=== PATIENT | male | born 1950 | race Caucasian/White ===

== ENCOUNTER 2018-05-03 11:06 | Inpatient (IN) | payer MEDICARE ==
[~2018-05-03] VITALS: Ht 172.7 cm; Wt 81.8 kg
[~2018-05-03 11:06] MED LIST: ATOR40TA78 PO; CEFA2PIG7 IV; ERGO500017 PO; FOLI-17 PO; LEVO25TA2 PO; MAGN400T7 PO; METO10TA82 PO; METO25TA35 PO; ONDA4VIA4 IVPush; PANT40GR PO; POLY17PO5 PO; THIA100T67 PO
[2018-05-03] MEDS ORDERED: SODIUM CHLORIDE 0.9% 1,000ML IVBOLUS ONE (11:30)
[2018-05-03] MEDS ORDERED: GUAI600T80 PO (11:57)
[2018-05-03] MEDS ORDERED: METH750T87 PO (11:57)
[2018-05-03] MEDS ORDERED: LEVO50TA PO (11:57)
[2018-05-03] MEDS ORDERED: MELA1TAB15 PO (11:57)
[2018-05-03] MEDS ORDERED: POTA20TA89 PO (11:57)
[2018-05-03] MEDS ORDERED: MAGN400T7 PO (11:57)
[2018-05-03] MEDS ORDERED: VITA1TAB3 PO (11:57)
[2018-05-03] MEDS ORDERED: ONDA4TAB10 PO (11:57)
[2018-05-03] MEDS ORDERED: LOSA100T2 PO (11:57)
[2018-05-03] MEDS ORDERED: THIA100T10 PO (11:57)
[2018-05-03] MEDS ORDERED: FURO40TA6 PO (11:57)
[2018-05-03] MEDS ORDERED: ATOR40TA PO (11:57)
[2018-05-03] MEDS ORDERED: CEFA2PLA9 IV (11:57)
[2018-05-03] MEDS ORDERED: SENN-31 PO (11:57)
[2018-05-03 12:07] LABS: BASOPHILS # (AUTO) 0.03 x10^3/uL (0-0.1); BASOPHILS % (AUTO) 0 % (0-1); EOSINOPHILS # (AUTO) 0.24 x10^3/uL (0-0.4); EOSINOPHILS % (AUTO) 3 % (1-7); LYMPHOCYTES # (AUTO) 0.81 x10^3/uL (1-3.4); LYMPHOCYTES % (AUTO) 9 % (22-44); MD NO; MEAN CORPUSCULAR HEMOGLOBIN 29.3 pg (27.5-34.5); MEAN CORPUSCULAR HGB CONC 33.5 g/dL (33.2-36.2); MEAN CORPUSCULAR VOLUME 87.3 fL (81-97); MEAN PLATELET VOLUME 6.2 fL (7.4-10.4); MONOCYTES # (AUTO) 1.19 x10^3/uL (0.2-0.8); MONOCYTES % (AUTO) 14 % (2-9); NEUTROPHILS # (AUTO) 6.39 x10^3/uL (1.8-6.8); NEUTROPHILS % (AUTO) 74 % (42-75); PLATELET COUNT 404 x10^3/uL (130-400); RED BLOOD COUNT 3.63 x10^6/uL (4.38-5.82); RED CELL DISTRIBUTION WIDTH 14.8 % (9.4-14.8)
[2018-05-03 12:19] LABS: ALANINE AMINOTRANSFERASE 30 U/L (12-78); ALBUMIN 3.2 g/dL (3.4-5.0); ANION GAP 7 mmol/L (5-15); CALCIUM 8.5 mg/dL (8.5-10.1); CHLORIDE 106 mmol/L (98-107); CREATININE 1.05 mg/dL (0.7-1.3)
[2018-05-03 12:23] LABS: ALKALINE PHOSPHATASE 193 U/L (45-117); BILIRUBIN,TOTAL 0.7 mg/dL (0.2-1.0); TOTAL PROTEIN 7.6 g/dL (6.4-8.2); TROPONIN I < 0.015 ng/mL (0.000-0.045)
[2018-05-03] MEDS ORDERED: OMNIPAQUE 350 MG/ML, 100ML BOTTLE ONE (12:47)
[2018-05-03] MEDS ORDERED: HEPARIN 5,000 UNITS/ML, 1ML IV ONE (13:30)
[2018-05-03] MEDS ORDERED: HEPARIN 25,000 UNITS/500ML PMX 500 ML ONE (13:34)
[2018-05-03] MEDS ORDERED: HEPARIN 5,000 UNITS/ML, 1ML ONE (13:34)
[2018-05-03] MEDS ORDERED: hydrALAzine 20 MG/ML, 1ML IVPush PRN (14:30)
[2018-05-03] MEDS ORDERED: DOCUSATE 100 MG CAPSULE PO PRN (14:30)
[2018-05-03] MEDS ORDERED: ONDANSETRON 2MG/ML, 2ML IVPush PRN (14:30)
[2018-05-03] MEDS ORDERED: LABETALOL 5MG/ML, 20ML IVPush PRN (14:30)
[2018-05-03] MEDS ORDERED: POLYETHYLENE GLYCOL 17 GM PACKET PO PRN (14:30)
[2018-05-03] MEDS ORDERED: ONDANSETRON ODT 4 MG PO PRN ×2 (14:30→19:30)
[2018-05-03] MEDS ORDERED: morphine SULFATE 10 MG/ML, 1ML IVPush PRN (14:30)
[2018-05-03] MEDS ORDERED: BISACODYL 10 MG SUPP PR PRN (14:30)
[2018-05-03] MEDS: HEPARIN 25,000 UNITS/500ML PMX 500 ML IV PRN ×2 (14:40→14:42)
[2018-05-03 15:20] VITALS: BP 135/87
[2018-05-03] MEDS: SUCRALFATE 1 GM TABLET PO SCH ×2 (17:37→22:52)
[2018-05-03] MEDS: PANTOPRAZOLE 80 MG in SODIUM CHLORIDE 0.9% 100 ML IV SCH (17:37)
[2018-05-03] MEDS: HYDROcodone/APAP 5/325 TABLET PO PRN (18:50)
[2018-05-03] MEDS ORDERED: CEFAZOLIN SODIUM IV SCH (19:30)
[2018-05-03] MEDS ORDERED: NACL 0.9% IV SCH (19:30)
[2018-05-03] MEDS ORDERED: [UNRECOGNIZED DRUG - OTHER] IV SCH (19:30)
[2018-05-03] MEDS ORDERED: MULTIVITS,STRESS FORMULA 1 TABLET PO SCH (20:00)
[2018-05-03 20:14] VITALS: BP 109/66
[2018-05-03] MEDS: MELATONIN 5 MG TABLET PO SCH (21:03)
[2018-05-03] MEDS: ATORVASTATIN 40 MG TABLET PO SCH (21:03)
[2018-05-03] MEDS: MAGNESIUM OXIDE 400 MG TABLET PO SCH (21:03)
[2018-05-03] MEDS: GUAIFENESIN ER 600 MG TABLET PO SCH (21:03)
[2018-05-03] MEDS: CEFAZOLIN PMX 2GM/50ML 50 ML IVPB SCH (21:03)
[2018-05-03] MEDS: HEPARIN 5,000 UNITS/ML, 1ML IV PRN (22:52)
[2018-05-04] VITALS (7 sets, daily range): BP systolic 90–110; BP diastolic 54–74
[2018-05-04] MEDS: PANTOPRAZOLE 80 MG in SODIUM CHLORIDE 0.9% 100 ML IV SCH (01:56)
[2018-05-04] MEDS: HYDROcodone/APAP 5/325 TABLET PO PRN ×2 (02:31→13:11)
[2018-05-04 05:20] LABS: ANION GAP 5 mmol/L (5-15); CALCIUM 8.7 mg/dL (8.5-10.1); CHLORIDE 106 mmol/L (98-107); CREATININE 1.04 mg/dL (0.7-1.3)
[2018-05-04 05:21] LABS: BASOPHILS # (AUTO) 0.03 x10^3/uL (0-0.1); BASOPHILS % (AUTO) 1 % (0-1); EOSINOPHILS % (AUTO) 3 % (1-7); LYMPHOCYTES # (AUTO) 1.04 x10^3/uL (1-3.4); LYMPHOCYTES % (AUTO) 15 % (22-44); MD NO; MEAN CORPUSCULAR HEMOGLOBIN 29.1 pg (27.5-34.5); MEAN CORPUSCULAR HGB CONC 33.4 g/dL (33.2-36.2); MEAN CORPUSCULAR VOLUME 87.2 fL (81-97); MEAN PLATELET VOLUME 6.4 fL (7.4-10.4); MONOCYTES % (AUTO) 14 % (2-9); NEUTROPHILS # (AUTO) 4.84 x10^3/uL (1.8-6.8); NEUTROPHILS % (AUTO) 68 % (42-75); PLATELET COUNT 359 x10^3/uL (130-400); RED BLOOD COUNT 3.13 x10^6/uL (4.38-5.82); RED CELL DISTRIBUTION WIDTH 15.1 % (9.4-14.8)
[2018-05-04] MEDS: SUCRALFATE 1 GM TABLET PO SCH ×4 (05:46→22:11)
[2018-05-04] MEDS: LEVOTHYROXINE 50 MCG TABLET PO SCH (05:46)
[2018-05-04] MEDS: HEPARIN 5,000 UNITS/ML, 1ML IV PRN ×3 (05:46→22:11)
[2018-05-04] MEDS: METOPROLOL TARTRATE 25 MG TABLET PO SCH ×2 (05:47→18:04)
[2018-05-04] MEDS: CEFAZOLIN PMX 2GM/50ML 50 ML IVPB SCH ×3 (05:47→20:23)
[2018-05-04] MEDS: FUROSEMIDE 40 MG TABLET PO SCH (08:35)
[2018-05-04] MEDS: FOLIC ACID 1 MG TABLET PO SCH (08:35)
[2018-05-04] MEDS: THIAMINE 100MG TABLET PO SCH (08:35)
[2018-05-04] MEDS: POTASSIUM CHLORIDE 20 MEQ TAB.ER.PRT PO SCH (08:35)
[2018-05-04] MEDS: GUAIFENESIN ER 600 MG TABLET PO SCH ×2 (08:35→20:23)
[2018-05-04] MEDS: MAGNESIUM OXIDE 400 MG TABLET PO SCH ×2 (08:35→20:23)
[2018-05-04] MEDS: LOSARTAN 50MG TABLET PO SCH (08:36)
[2018-05-04] MEDS: METHOCARBAMOL 750 MG TABLET PO PRN ×2 (08:57→18:04)
[2018-05-04] MEDS ORDERED: SENNA/DOCUSATE TABLET PO SCH (09:00)
[2018-05-04] MEDS: HEPARIN 25,000 UNITS/500ML PMX 500 ML IV PRN (13:44)
[2018-05-04] MEDS: OMEPRAZOLE 20 MG CAPSULE.DR PO SCH (16:09)
[2018-05-04] MEDS: ATORVASTATIN 40 MG TABLET PO SCH (20:23)
[2018-05-04] MEDS: MELATONIN 5 MG TABLET PO SCH (20:29)
[2018-05-05 01:32] VITALS: BP 98/63
[2018-05-05] MEDS: ACETAMINOPHEN 325 MG TABLET PO PRN ×3 (01:38→16:04)
[2018-05-05 04:59] VITALS: BP 98/66
[2018-05-05] MEDS: CEFAZOLIN PMX 2GM/50ML 50 ML IVPB SCH ×3 (05:01→21:14)
[2018-05-05] MEDS: SUCRALFATE 1 GM TABLET PO SCH ×4 (05:02→21:14)
[2018-05-05] MEDS: LEVOTHYROXINE 50 MCG TABLET PO SCH (05:02)
[2018-05-05 05:37] LABS: BASOPHILS # (AUTO) 0.05 x10^3/uL (0-0.1); BASOPHILS % (AUTO) 1 % (0-1); EOSINOPHILS % (AUTO) 4 % (1-7); LYMPHOCYTES # (AUTO) 0.95 x10^3/uL (1-3.4); LYMPHOCYTES % (AUTO) 17 % (22-44); MD NO; MEAN CORPUSCULAR HEMOGLOBIN 28.6 pg (27.5-34.5); MEAN CORPUSCULAR HGB CONC 32.9 g/dL (33.2-36.2); MEAN CORPUSCULAR VOLUME 86.7 fL (81-97); MEAN PLATELET VOLUME 6.5 fL (7.4-10.4); MONOCYTES # (AUTO) 0.73 x10^3/uL (0.2-0.8); MONOCYTES % (AUTO) 13 % (2-9); NEUTROPHILS # (AUTO) 3.78 x10^3/uL (1.8-6.8); NEUTROPHILS % (AUTO) 66 % (42-75); PLATELET COUNT 372 x10^3/uL (130-400); RED BLOOD COUNT 3.11 x10^6/uL (4.38-5.82); RED CELL DISTRIBUTION WIDTH 14.4 % (9.4-14.8)
[2018-05-05] MEDS: HEPARIN 25,000 UNITS/500ML PMX 500 ML IV PRN ×2 (05:59→17:44)
[2018-05-05] MEDS: HEPARIN 5,000 UNITS/ML, 1ML IV PRN (06:01)
[2018-05-05 06:37] VITALS: BP 112/73
[2018-05-05] MEDS: OMEPRAZOLE 20 MG CAPSULE.DR PO SCH ×2 (08:17→15:56)
[2018-05-05] MEDS: FOLIC ACID 1 MG TABLET PO SCH (08:18)
[2018-05-05] MEDS: GUAIFENESIN ER 600 MG TABLET PO SCH ×2 (08:18→20:29)
[2018-05-05] MEDS: POTASSIUM CHLORIDE 20 MEQ TAB.ER.PRT PO SCH (08:18)
[2018-05-05] MEDS: FUROSEMIDE 40 MG TABLET PO SCH (08:19)
[2018-05-05] MEDS: MAGNESIUM OXIDE 400 MG TABLET PO SCH ×2 (08:19→20:29)
[2018-05-05] MEDS: THIAMINE 100MG TABLET PO SCH (08:19)
[2018-05-05] MEDS ORDERED: METOPROLOL TARTRATE 50 MG TABLET ONE (08:34)
[2018-05-05] MEDS: LOSARTAN 50MG TABLET PO SCH (10:06)
[2018-05-05] MEDS: METOPROLOL TARTRATE 25 MG TABLET PO SCH ×2 (10:07→17:40)
[2018-05-05] MEDS ORDERED: METHOCARBAMOL 500 MG TABLET ONE (11:08)
[2018-05-05] MEDS: METHOCARBAMOL 750 MG TABLET PO PRN (11:12)
[2018-05-05 12:59] VITALS: BP 106/69
[2018-05-05 18:59] VITALS: BP 111/69
[2018-05-05] MEDS: ATORVASTATIN 40 MG TABLET PO SCH (20:28)
[2018-05-05] MEDS: MELATONIN 5 MG TABLET PO SCH (20:29)
[2018-05-06 05:18] VITALS: BP 117/74
[2018-05-06] MEDS: SUCRALFATE 1 GM TABLET PO SCH ×4 (05:20→21:00)
[2018-05-06] MEDS: CEFAZOLIN PMX 2GM/50ML 50 ML IVPB SCH ×2 (05:20→13:42)
[2018-05-06] MEDS: METOPROLOL TARTRATE 25 MG TABLET PO SCH ×2 (05:20→17:47)
[2018-05-06] MEDS: LEVOTHYROXINE 50 MCG TABLET PO SCH (05:20)
[2018-05-06 07:33] VITALS: BP 118/76
[2018-05-06] MEDS: ACETAMINOPHEN 325 MG TABLET PO PRN ×2 (07:39→16:12)
[2018-05-06] MEDS: METHOCARBAMOL 750 MG TABLET PO PRN ×2 (07:39→16:12)
[2018-05-06] MEDS: OMEPRAZOLE 20 MG CAPSULE.DR PO SCH ×2 (07:39→15:52)
[2018-05-06] MEDS: LOSARTAN 50MG TABLET PO SCH (07:40)
[2018-05-06] MEDS: POTASSIUM CHLORIDE 20 MEQ TAB.ER.PRT PO SCH (07:40)
[2018-05-06] MEDS: FOLIC ACID 1 MG TABLET PO SCH (07:40)
[2018-05-06] MEDS: THIAMINE 100MG TABLET PO SCH (07:41)
[2018-05-06] MEDS: FUROSEMIDE 40 MG TABLET PO SCH (07:41)
[2018-05-06] MEDS: MAGNESIUM OXIDE 400 MG TABLET PO SCH ×2 (07:41→20:59)
[2018-05-06] MEDS: GUAIFENESIN ER 600 MG TABLET PO SCH ×2 (07:42→21:00)
[2018-05-06] MEDS: HEPARIN 25,000 UNITS/500ML PMX 500 ML IV PRN (10:40)
[2018-05-06 14:04] VITALS: BP 110/69
[2018-05-06 19:33] VITALS: BP 110/71
[2018-05-06] MEDS: ATORVASTATIN 40 MG TABLET PO SCH (20:59)
[2018-05-06] MEDS: RIVAROXABAN 15 MG TABLET PO SCH (21:22)
[2018-05-06] MEDS: MELATONIN 5 MG TABLET PO SCH (21:22)
[2018-05-06] MEDS: CEFAZOLIN 2,000 MG in SODIUM CHLORIDE 0.9% 50 ML IVPB SCH (22:21)
[2018-05-07 00:38] VITALS: BP 130/82
[2018-05-07] MEDS ORDERED: SULFAMETH./TRIMETHOPRIM DS 800MG/160MG TABLET PO SCH (03:00)
[2018-05-07] MEDS: SUCRALFATE 1 GM TABLET PO SCH ×3 (04:16→16:54)
[2018-05-07] MEDS: LEVOTHYROXINE 50 MCG TABLET PO SCH (05:47)
[2018-05-07] MEDS: METOPROLOL TARTRATE 25 MG TABLET PO SCH ×2 (05:48→16:54)
[2018-05-07] MEDS: CEFAZOLIN 2,000 MG in SODIUM CHLORIDE 0.9% 50 ML IVPB SCH ×2 (06:00→14:48)
[2018-05-07 07:41] VITALS: BP 116/75
[2018-05-07 08:03] VITALS: BP 134/81
[2018-05-07] MEDS: FOLIC ACID 1 MG TABLET PO SCH (09:49)
[2018-05-07] MEDS: THIAMINE 100MG TABLET PO SCH (09:49)
[2018-05-07] MEDS: LOSARTAN 50MG TABLET PO SCH (09:50)
[2018-05-07] MEDS: RIVAROXABAN 15 MG TABLET PO SCH ×2 (09:50→16:55)
[2018-05-07] MEDS: POTASSIUM CHLORIDE 20 MEQ TAB.ER.PRT PO SCH (09:50)
[2018-05-07] MEDS: GUAIFENESIN ER 600 MG TABLET PO SCH (09:51)
[2018-05-07] MEDS: FUROSEMIDE 40 MG TABLET PO SCH (09:51)
[2018-05-07] MEDS: MAGNESIUM OXIDE 400 MG TABLET PO SCH (09:51)
[2018-05-07] MEDS: OMEPRAZOLE 20 MG CAPSULE.DR PO SCH ×2 (09:56→16:55)
[2018-05-07] MEDS: ACETAMINOPHEN 325 MG TABLET PO PRN (10:36)
[2018-05-07] MEDS ORDERED: LOSA100T2 PO (12:41)
[2018-05-07] MEDS ORDERED: POTA20TA89 PO (12:41)
[2018-05-07] MEDS ORDERED: FURO40TA6 PO (12:41)
[2018-05-07] MEDS ORDERED: ATOR40TA PO (12:41)
[2018-05-07] MEDS ORDERED: RIVA20TA PO (12:41)
[2018-05-07] MEDS ORDERED: SUCR1TAB33 PO (12:41)
[2018-05-07] MEDS ORDERED: METO25TA35 PO (12:41)
[2018-05-07] MEDS ORDERED: ONDA4TAB10 PO (12:41)
[2018-05-07] MEDS ORDERED: THIA100T10 PO (12:41)
[2018-05-07] MEDS ORDERED: BISA10SU65 PR (12:41)
[2018-05-07] MEDS ORDERED: GUAI600T80 PO (12:41)
[2018-05-07] MEDS ORDERED: MELA5TAB19 PO (12:41)
[2018-05-07] MEDS ORDERED: FOLI-17 PO (12:41)
[2018-05-07] MEDS ORDERED: METH750T87 PO (12:41)
[2018-05-07] MEDS ORDERED: LEVO50TA PO (12:41)
[2018-05-07] MEDS ORDERED: PANT40GR PO (12:41)
[2018-05-07] MEDS ORDERED: SENN-31 PO (12:41)
[2018-05-07] MEDS ORDERED: RIVA15TA PO (12:41)
[2018-05-07] MEDS ORDERED: MAGN400T7 PO (12:41)
[2018-05-07 16:45] VITALS: BP 123/80
[2018-05-28] MEDS ORDERED: RIVAROXABAN 20 MG TABLET PO SCH (08:00)
== END 2018-05-07 18:21 | disposition home or self-care (01) | DRG 288 ==
LOC: ED 11:25 → EDIP 13:53 → 5SO 15:04
PROVIDERS: ADMIT Hospitalist; ATTEND Hospitalist
DX: I33.0 Acute and subacute infective endocarditis (principal); I26.99 Other pulmonary embolism without acute cor pulmonale; J96.01 Acute respiratory failure with hypoxia; I50.40 Unspecified combined systolic (congestive) and diastolic (congestive) heart failure; K92.0 Hematemesis; E44.1 Mild protein-calorie malnutrition; F10.10 Alcohol abuse, uncomplicated; I11.0 Hypertensive heart disease with heart failure; I34.0 Nonrheumatic mitral (valve) insufficiency; K70.10 Alcoholic hepatitis without ascites; B95.61 Methicillin susceptible Staphylococcus aureus infection as the cause of diseases classified elsewhere; D64.9 Anemia, unspecified; Z86.73 Personal history of transient ischemic attack (TIA), and cerebral infarction without residual deficits; Z87.01 Personal history of pneumonia (recurrent); Z88.8 Allergy status to other drugs, medicaments and biological substances; Z90.89 Acquired absence of other organs; Z87.440 Personal history of urinary (tract) infections; Z68.27 Body mass index [BMI] 27.0-27.9, adult
CPT/HCPCS: 36415; 71045; 71275; 80048; 80053; 83880; 84484; 85014; 85018; 85025; 85520; 87040; 93005; 93306; 93970; 96374; 99291; J0690; J1644; Q9967; C9113; J7030